=== PATIENT | female | born 1955 | race Caucasian/White ===

== ENCOUNTER 2018-07-11 15:44 | Emergency (ER) | payer OTHER ==
[~2018-07-11] VITALS: Ht 162.6 cm; Wt 65.3 kg
[2018-07-11] MEDS ORDERED: Ipratropium 0.02% Inh Soln 2.5ml UD HHN ONE (16:15)
[2018-07-11] MEDS ORDERED: Albuterol ud Inhalation HHN ONE (16:15)
[2018-07-11 16:30] VITALS: BP 100/64
--- NOTE | 2018-07-11 16:42 | Emergency Room Report ---
History of Present Illness General Chief Complaint: Dyspnea/Respdistress Source: Patient Present Illness HPI Patient presents with 1 month of cough. She sent here by her doctor to rule out pneumonia. She doesn't smoke. She has never used an inhaler. She does hear herself wheezing at times. She denies any chest pain. She did not receive a flu vaccination. She is taken antibiotics in the recent past. They have not seemed to improve the symptoms. The cough keeps her awake at night. She denies any productive phlegm. There is no family history of asthma. The patient denies any allergies. No fevers, chills, chest pain, palpitations, nausea, vomiting, diarrhea, dysuria , abdominal pain, shortness of breath, depression, visual changes, headache. History of hypertension. No change in medications recently. Allergies: Coded Allergies: No Known Allergies (Unverified , 07/11/18) Patient History Past Medical History: see triage record Social History: Denies: smoking Social History Narrative Now: No Reviewed Nursing Documentation: PMH: Agreed; PSxH: Agreed Nursing Documentation-PMH Past Medical History: No History, Except For Hx Hypertension: Yes Review of Systems All Other Systems: negative except mentioned in HPI Physical Exam Vital Signs Date Time Temp Pulse Resp B/P (MAP) Pulse Ox O2 Delivery O2 Flow Rate FiO2 07/11/18 15:55 99.1 109 23 145/87 95 Room Air 07/11/18 16:28 21 Sp02 EP Interpretation: reviewed, normal General Appearance: well appearing, no apparent distress, GCS 15 Head: normocephalic, atraumatic Eyes: bilateral eye normal inspection, bilateral eye PERRL ENT: moist mucus membranes Neck: supple Respiratory: wheezing, expiration - Posttussive and end expiration Cardiovascular #1: regular rate, rhythm, no edema Cardiovascular #2: 2+ radial (R) Gastrointestinal: normal inspection, normal bowel sounds, non tender, no mass, non-distended Genitourinary: no CVA tenderness Musculoskeletal: back normal, gait/station normal, normal range of motion, no calf tenderness, Luciano's Sign negative Neurologic: alert, oriented x3, grossly normal Psychiatric: mood/affect normal Skin: normal inspection, warm/dry Medical Decision Making Diagnostic Impression: Primary Impression: URI (upper respiratory infection) Qualified Codes: J06.9 - Acute upper respiratory infection, unspecified Additional Impressions: Bronchospasm Eosinophilia ER Course Patient presents with 1 month of cough. Differential includes allergy, acute myocardial infarction, pneumonia, bronchitis, bronchospasm, allergic reaction amongst others. Symptomatology is against whooping cough and tuberculosis. Also based on her physical exam and vital signs pulmonary embolus is unlikely. Evaluation will be with EKG, chest x-ray labs. The patient will be treated with breathing treatments. EKG without injury. Chest x-ray no infiltrates. Labs with normal white count however there is eosinophilia. CMP unremarkable. Troponin negative. Patient improved with breathing treatment. Because she had eosinophilia a dose of Solu-Medrol was given. A Citizen Of [place] veterinary medicine teacher treatment plan and diagnoses were discussed with the patient and her . Questions were answered. I reviewed use of an inhaler with him with the help of the veterinary medicine teacher and they felt comfortable with its use after the discussion. Patient stable for outpatient observation and treatment. Laboratory Tests Test 07/11/18 16:20 White Blood Count 6.8 K/UL (4.8-10.8) Red Blood Count 4.90 M/UL (4.20-5.40) Hemoglobin 15.7 G/DL (12.0-16.0) Hematocrit 47.7 % (37.0-47.0) H Mean Corpuscular Volume 97 FL (80-99) Mean Corpuscular Hemoglobin 32.1 PG (27.0-31.0) H Mean Corpuscular Hemoglobin Concent 33.0 G/DL (32.0-36.0) Red Cell Distribution Width 12.3 % (11.6-14.8) Platelet Count 224 K/UL (150-450) Mean Platelet Volume 6.8 FL (6.5-10.1) Neutrophils (%) (Auto) 55.5 % (45.0-75.0) Lymphocytes (%) (Auto) 24.7 % (20.0-45.0) Monocytes (%) (Auto) 12.1 % (1.0-10.0) H Eosinophils (%) (Auto) 6.4 % (0.0-3.0) H Basophils (%) (Auto) 1.4 % (0.0-2.0) Prothrombin Time 10.0 SEC (9.30-11.50) Prothrombin Time INR 0.9 (0.9-1.1) PTT 27 SEC (23-33) D-Dimer 0.28 mg/L FEU (0.00-0.49) Urine Color Yellow Urine Appearance Clear Urine pH 5 (4.5-8.0) Urine Specific [place] 1.030 (1.005-1.035) Urine Protein Negative (NEGATIVE) Urine Glucose (UA) Negative (NEGATIVE) Urine Ketones Negative (NEGATIVE) Urine Blood 1+ (NEGATIVE) H Urine Nitrite Negative (NEGATIVE) Urine Bilirubin Negative (NEGATIVE) Urine Urobilinogen Normal MG/DL (0.0-1.0) Urine Leukocyte Esterase Negative (NEGATIVE) Urine RBC 0-2 /HPF (0 - 2) Urine WBC 0 /HPF (0 - 2) Urine Squamous Epithelial Cells Few /LPF (NONE/OCC) Urine Bacteria Few /HPF (NONE) Sodium Level 140 MMOL/L (136-145) Potassium Level 3.9 MMOL/L (3.5-5.1) Chloride Level 106 MMOL/L (98-107) Carbon Dioxide Level 27 MMOL/L (21-32) Anion Gap 7 mmol/L (5-15) Blood Urea Nitrogen 14 mg/dL (7-18) Creatinine 1.1 MG/DL (0.55-1.30) Estimate Glomerular Filtration Rate 50.3 mL/min (>60) Glucose Level 150 MG/DL (74-106) H Lactic Acid Level 1.50 mmol/L (0.4-2.0) Calcium Level 10.8 MG/DL (8.5-10.1) H Total Bilirubin 0.8 MG/DL (0.2-1.0) Aspartate Amino Transferase (AST) 19 U/L (15-37) Alanine Aminotransferase (ALT) 26 U/L (12-78) Alkaline Phosphatase 99 U/L (46-116) Total Creatine Kinase 55 U/L (26-308) Troponin I 0.000 ng/mL (0.000-0.056) Pro-B-Type Natriuretic Peptide 56 pg/mL (0-125) Total Protein 7.7 G/DL (6.4-8.2) Albumin 3.8 G/DL (3.4-5.0) Globulin 3.9 g/dL Albumin/Globulin Ratio 1.0 (1.0-2.7) Microbiology Date/Time Source Procedure Growth Status 07/11/18 16:20 Nasal Nares Influenza Types A,B Antigen (TINO) - Final Complete EKG Diagnostic Results Rate: tachycardiac ST Segments: no acute changes Rhythm Strip Diag. Results EP Interpretation: yes Rhythm: no PVC's, no ectopy, other - ST Chest X-Ray Diagnostic Results Chest X-Ray Diagnostic Results : Chest X-Ray Ordered: Yes # of Views/Limited/Complete: 1 View Indication: Other EP Interpretation: Yes Interpretation: no consolidation, no effusion, no pneumothorax Impression: No acute disease Electronically Signed by: Electronically signed by Edd Tinsley MD Last Vital Signs Date Time Temp Pulse Resp B/P (MAP) Pulse Ox O2 Delivery O2 Flow Rate FiO2 07/11/18 19:12 23 134/89 95 Room Air 07/11/18 18:30 98.5 121 07/11/18 16:41 21 Status: improved Disposition: HOME, SELF-CARE Condition: Improved Scripts Prednisone* (PREDNISONE*) 20 Mg Tablet 40 MG ORAL DAILY, #10 TAB Prov: Edd Tinsley MD 07/11/18 Guaifenesin/Codeine Phos* (ROBITUSSIN AC*) 118 Ml Liquid 5 ML ORAL Q6H PRN for For Cough, #118 ML 0 Refills Prov: Edd Tinsley MD 07/11/18 Albuterol Sulfate* (ALBUTEROL SULFATE MDI*) 8.5 Gm Hfa.aer.ad 2 PUFF INH Q6H, #1 EA 0 Refills Prov: Edd Tinsley MD 07/11/18 Edd Tinsley MD Jul 11, 2018 16:42
[2018-07-11 16:46] LABS: BASOPHILS % (AUTO) 1.4 % (0.0-2.0); EOSINOPHILS % (AUTO) 6.4 % (0.0-3.0); HEMATOCRIT 47.7 % (37.0-47.0); HEMOGLOBIN 15.7 G/DL (12.0-16.0); LYMPHOCYTES % (AUTO) 24.7 % (20.0-45.0); MEAN CORPUSCULAR VOLUME 97 FL (80-99); MONOCYTES % (AUTO) 12.1 % (1.0-10.0); NEUTROPHILS % (AUTO) 55.5 % (45.0-75.0); PLATELET COUNT 224 K/UL (150-450); RED CELL DISTRIBUTION WIDTH 12.3 % (11.6-14.8); WHITE BLOOD COUNT 6.8 K/UL (4.8-10.8)
[2018-07-11 16:55] LABS: INR 0.9 (0.9-1.1)
[2018-07-11 17:04] LABS: APPEARANCE,URINE CLEAR; BILIRUBIN, URINE NEGATIVE (NEGATIVE); GLUCOSE, URINE (UA) NEGATIVE (NEGATIVE); KETONES,URINE NEGATIVE (NEGATIVE); LEUKOCYTE ESTERASE ,URINE NEGATIVE (NEGATIVE); NITRITE,URINE NEGATIVE (NEGATIVE); PH,URINE 5 (4.5-8.0); PROTEIN,URINE NEGATIVE (NEGATIVE); UROBILINOGEN,URINE NORMAL MG/DL (0.0-1.0)
[2018-07-11 17:09] LABS: COLOR,URINE YELLOW
[2018-07-11 17:23] LABS: ANION GAP 7 mmol/L (5-15); BLOOD UREA NITROGEN 14 mg/dL (7-18); CALCIUM 10.8 MG/DL (8.5-10.1); CARBON DIOXIDE 27 MMOL/L (21-32); CHLORIDE 106 MMOL/L (98-107); CREATININE 1.1 MG/DL (0.55-1.30); POTASSIUM 3.9 MMOL/L (3.5-5.1); SODIUM 140 MMOL/L (136-145)
[2018-07-11 17:30] VITALS: BP 137/66
[2018-07-11 17:33] LABS: ALANINE AMINOTRANSFERASE 26 U/L (12-78); ALBUMIN 3.8 G/DL (3.4-5.0); ALKALINE PHOSPHATASE 99 U/L (46-116); ASPARTATE AMINO TRANSFERASE 19 U/L (15-37); BILIRUBIN,TOTAL 0.8 MG/DL (0.2-1.0); CREATINE KINASE 55 U/L (26-308)
[2018-07-11] MEDS ORDERED: Solu-MEDROL 125mg Inj IVP ONE (18:00)
[2018-07-11 18:30] VITALS: BP 134/89
[2018-07-11] MEDS ORDERED: GUAIFENESIN-CO118 M1 ORAL (18:32)
[2018-07-11] MEDS ORDERED: PREDNISONE20 MG ORAL (18:32)
[2018-07-11] MEDS ORDERED: ALBUTEROL SULF8.5 GM INH (18:32)
[2018-07-11 19:12] VITALS: BP 134/89
--- NOTE | 2018-07-13 15:49 | Diagnostic Imaging Report ---
Indication: Dyspnea Comparison: None A single view chest radiograph was obtained. Findings: Cardiomediastinal appearance is within normal limits for age. The lungs are clear. Pulmonary vascularity is appropriate. The diaphragmatic contour is smooth and costophrenic angles are sharp. No pleural effusions are identified. The bones are unremarkable. Impression: No acute findings
== END 2018-07-11 19:18 | disposition home or self-care (01) ==
LOC: EMR 16:53
DX: J06.9 Acute upper respiratory infection, unspecified (principal); D72.1 Eosinophilia; J98.01 Acute bronchospasm; I10 Essential (primary) hypertension
CPT/HCPCS: 36415; 71045; 80053; 81003; 82550; 83605; 83880; 84484; 85025; 85379; 85610; 85730; 86710; 93005; 94640; 94664; 96374; 99284; J2930

== ENCOUNTER 2018-10-14 15:27 | Emergency (ER) | payer OTHER ==
[~2018-10-14] VITALS: Ht 162.6 cm; Wt 68.0 kg
[~2018-10-14 15:27] MED LIST: ALBUTEROL SULF8.5 GM INH; GUAIFENESIN-CO118 M1 ORAL; PREDNISONE20 MG ORAL
[2018-10-14] MEDS ORDERED: NKM (15:37)
[2018-10-14 16:02] VITALS: BP 128/76
[2018-10-14] MEDS ORDERED: Bacitracin Oint UD TOPIC ONE (16:30)
[2018-10-14] MEDS ORDERED: CEPHALEXIN500 MG ORAL (16:42)
[2018-10-14] MEDS ORDERED: MUPIROCIN22 GM TOPIC (16:42)
--- NOTE | 2018-10-14 16:42 | Emergency Room Report ---
History of Present Illness General Chief Complaint: Skin Rash/Abscess Source: Medical Record Present Illness HPI 63-year-old female presents to the emergency department complaining of 10 out of 10 in severity pain to the right pinky toe on the medial aspect progressive 3 days. Patient reports she has history of corns one of which was removed on the fourth right toe and she is now having symptoms on the right. Patient reports erythema and tenderness and some white appearance as well. Patient denies fevers, chills she states she is up-to-date with tetanus vaccination. Patient denies trauma or fall. Denies history of immunocompromise or diabetes. Allergies: Coded Allergies: No Known Allergies (Unverified , 07/11/18) Patient History Past Medical History: see triage record Past Surgical History: none Pertinent Family History: none Immunizations: UTD Reviewed Nursing Documentation: PMH: Agreed; PSxH: Agreed Nursing Documentation-PMH Past Medical History: No History, Except For Hx Hypertension: Yes Review of Systems All Other Systems: negative except mentioned in HPI Physical Exam Vital Signs Date Time Temp Pulse Resp B/P (MAP) Pulse Ox O2 Delivery O2 Flow Rate FiO2 10/14/18 15:36 98.4 90 18 138/84 95 Room Air Sp02 EP Interpretation: reviewed, normal General Appearance: no apparent distress, alert, GCS 15, non-toxic Head: normocephalic, atraumatic Eyes: bilateral eye normal inspection, bilateral eye PERRL ENT: hearing grossly normal, normal voice Neck: full range of motion Respiratory: lungs clear, normal breath sounds, speaking full sentences Cardiovascular #1: regular rate, rhythm, no edema, normal capillary refill Cardiovascular #2: 2+ dorsalis pedis (R), 2+ dorsalis pedis (L) Genitourinary: normal inspection Musculoskeletal: back normal, gait/station normal, normal range of motion, non- tender Neurologic: alert, oriented x3, responsive, motor strength/tone normal, sensory intact, speech normal, grossly normal Psychiatric: judgement/insight normal Skin: normal color, no rash, warm/dry, well hydrated, other - corn noted on the medial-interdigital space on the right 5th toe, erythema and a surrounding superficial purulence noted, no streaking, no obivous ST FB, pt. has similar lesion on the plantar aspect of the right 4th toe as well. Lymphatic: no adenopathy Medical Decision Making PA Attestation Dr. Mills is my supervising Physician whom patient management has been discussed with. Diagnostic Impression: Primary Impression: [place] infected Additional Impression: [place] of toe ER Course 63-year-old female presents to the emergency department complaining of 10 out of 10 in severity pain to the right pinky toe on the medial aspect progressive 3 days. Patient reports she has history of corns one of which was removed on the fourth right toe and she is now having symptoms on the right. Patient reports erythema and tenderness and some white appearance as well. Patient denies fevers, chills she states she is up-to-date with tetanus vaccination. Patient denies trauma or fall. Denies history of immunocompromise or diabetes. Ddx considered but are not limited to cellulitis, Plantar wart, Tophi, retained FB, dermatitis, , eczema, tinea, callous, viral exanthem just to name a few. Vital signs: are WNL, pt. is afebrile H&PE are most consistent with [place] on the medial aspect of the right 5th toe with secondary cellulitis / macerated/purulent appearance. ORDERS: none required at this time, the diagnosis is clinical ED INTERVENTIONS: -Wound care/cleaning -soft dressing applied to off load friction to the adjacent toe. DISCHARGE: At this time pt. is stable for d/c to home. Will provide printed patient care instructions, and any necessary prescriptions. Care plan and follow up instructions have been discussed with the patient prior to discharge. Last Vital Signs Date Time Temp Pulse Resp B/P (MAP) Pulse Ox O2 Delivery O2 Flow Rate FiO2 10/14/18 16:02 98.2 84 17 128/76 99 Room Air Status: improved Disposition: HOME, SELF-CARE Condition: Stable Scripts Mupirocin* (MUPIROCIN*) 22 Gm Oint...g. 1 APPLIC TOPIC THREE TIMES A DAY, #22 GM Prov: Ansley Markham 10/14/18 Cephalexin* (KEFLEX*) 500 Mg Capsule 500 MG ORAL EVERY 12 HOURS for 7 Days, #14 CAP 0 Refills Prov: Ansley Markham 10/14/18 Referrals: [facility],REFERRING (PCP) Patient Instructions: Corns and Calluses Additional Instructions: Take medications as directed. Follow up with a Primary Care Provider in 3-5 days for [facility] C[employer] REFERRAL, even if your symptoms have resolved. --Please review list of primary care clinics, if you do not already have a primary care provider Return sooner to ED if new symptoms occur, or current symptoms become worse. - Please note that this Emergency Department Report was dictated using [employer] technology software, occasionally this can lead to erroneous entry secondary to interpretation by the dictation equipment. Ansley Markham Oct 14, 2018 16:42
[2018-10-14 16:45] VITALS: BP 124/74
== END 2018-10-14 16:47 | disposition home or self-care (01) ==
LOC: EMR 16:25
DX: L84 Corns and callosities (principal); I10 Essential (primary) hypertension
CPT/HCPCS: 99282

== ENCOUNTER 2018-10-26 08:24 | Emergency (ER) | payer OTHER ==
[~2018-10-26] VITALS: Ht 160 cm; Wt 63.5 kg
[~2018-10-26 08:24] MED LIST changes: +CEPHALEXIN500 MG ORAL; +MUPIROCIN22 GM TOPIC; +NKM
[2018-10-26 08:44] VITALS: BP 125/78
--- NOTE | 2018-10-26 08:57 | Emergency Room Report ---
History of Present Illness General Chief Complaint: Flu Like Symptoms Source: Patient Present Illness HPI Patient presents with complaints of bilateral conjunctivitis discharge bilaterally she reports that this morning upon awaking there was increased discharge and she had to wash her eyes out experiencing blurry vision with the discharge Patient also reports that she is losing her voice also complains of increased cough and congestion Denies any chest pain denies any vomiting or diarrhea She has some questionable low-grade fever denies any posterior neck pain denies any photophobia denies any other rash Patient also complains of a sore throat Allergies: Coded Allergies: No Known Allergies (Unverified , 07/11/18) Patient History Past Medical History: see triage record Pertinent Family History: none Now: No Reviewed Nursing Documentation: PMH: Agreed; PSxH: Agreed Nursing Documentation-PMH Past Medical History: No History, Except For Hx Hypertension: Yes Review of Systems All Other Systems: negative except mentioned in HPI Physical Exam Vital Signs Date Time Temp Pulse Resp B/P (MAP) Pulse Ox O2 Delivery O2 Flow Rate FiO2 10/26/18 08:30 99.7 106 16 125/78 95 Room Air Sp02 EP Interpretation: reviewed, normal General Appearance: well appearing, no apparent distress Head: normocephalic, atraumatic Eyes: bilateral eye PERRL, bilateral eye EOMI, bilateral eye other - Bilateral conjunctivitis with yellowish discharge ENT: hearing grossly normal, TMs + canals normal, uvula midline, pharyngeal erythema Neck: full range of motion, supple, no meningismus, no bony tend Respiratory: lungs clear, normal breath sounds, no rhonchi, no respiratory distress, no retraction, no accessory muscle use Cardiovascular #1: normal peripheral pulses, regular rate, rhythm, no edema, no gallop, no JVD, no murmur Gastrointestinal: normal bowel sounds, non tender, soft, no mass, no organomegaly, non-distended, no guarding, no hernia, no pulsatile mass, no rebound Genitourinary: no CVA tenderness Musculoskeletal: normal inspection Neurologic: oriented x3, responsive, central supply aide III-XII nml as tested, motor strength/ tone normal, sensory intact Psychiatric: mood/affect normal Skin: normal color, no rash, warm/dry, palpation normal Lymphatic: normal inspection, no adenopathy Medical Decision Making Diagnostic Impression: Primary Impression: Laryngitis Additional Impression: Conjunctivitis ER Course Given the patient's history and presentation multiple differentials and consideration Given the increased cough chest x-ray was also obtained no obvious acute pathology is seen Patient has consistent findings with laryngitis Secondary bilateral conjunctivitis Patient was placed on medications appropriately and requires close outpatient follow-up Chest X-Ray Diagnostic Results Chest X-Ray Diagnostic Results : Chest X-Ray Ordered: Yes # of Views/Limited/Complete: 1 View Indication: Shortness of Breath EP Interpretation: Yes Interpretation: no consolidation, no effusion, no pneumothorax Impression: No acute disease Electronically Signed by: Grady Mcdaniel DO Last Vital Signs Date Time Temp Pulse Resp B/P (MAP) Pulse Ox O2 Delivery O2 Flow Rate FiO2 10/26/18 08:44 106 16 Room Air 10/26/18 08:44 99.7 125/78 95 Status: improved Disposition: HOME, SELF-CARE Condition: Improved Scripts Gentamicin Sulfate (Gentamicin Sulfate) 5 Ml Drops 1 DROP OP TID for 5 Days, ML Prov: Grady Mcdaniel DO 10/26/18 Additional Instructions: Patient is provided with the discharge instructions notified to follow up with primary doctor in the next 2-3 days otherwise return to the er with any worsening symptoms. Please note that this report is being documented using [employer] technology. This can lead to erroneous entry secondary to incorrect interpretation by the dictating instrument. Grady Mcdaniel DO Oct 26, 2018 08:57
[2018-10-26] MEDS ORDERED: GENTAMICIN SULF15 ML OP (09:47)
[2018-10-26 10:10] VITALS: BP 122/65
--- NOTE | 2018-10-28 14:53 | Diagnostic Imaging Report ---
Indication: Cough Technique: One view of the chest Comparison: 07/11/2018 Findings: Lungs and pleural spaces are clear. Heart size is normal . No significant interim change Impression: No acute process
== END 2018-10-26 10:10 | disposition home or self-care (01) ==
LOC: EMR 09:00
DX: J04.0 Acute laryngitis (principal); H10.9 Unspecified conjunctivitis; I10 Essential (primary) hypertension
CPT/HCPCS: 71045; 99283

== ENCOUNTER 2018-11-20 13:05 | Emergency (ER) | payer OTHER ==
[~2018-11-20] VITALS: Ht 162.6 cm; Wt 68.0 kg
[~2018-11-20 13:05] MED LIST changes: +GENTAMICIN SULF15 ML OP
[2018-11-20 13:17] VITALS: BP 137/83
[2018-11-20] MEDS ORDERED: SYNTHROID25 MCG ORAL (13:33)
[2018-11-20] MEDS ORDERED: BENAZEPRIL HCL10 MG ORAL (13:33)
[2018-11-20] MEDS ORDERED: GABAPENTIN100 MG ORAL (13:33)
[2018-11-20] MEDS ORDERED: TRAMADOL HCL50 MG ORAL (13:33)
[2018-11-20] MEDS ORDERED: SIMVASTATIN5 MG ORAL (13:33)
--- NOTE | 2018-11-20 14:20 | Emergency Room Report ---
History of Present Illness General Chief Complaint: Upper Respiratory Illness Source: Medical Record Present Illness HPI 63-year-old female presents to the emergency department complaining of dry persistent cough that is worse at night 2 months. Patient has been evaluated multiple times and given cough syrups and antibiotics with no relief of her symptoms. Patient denies pain, fevers, chills, body aches, and pain or swelling in the lower extremities.Denies CP, Palpitations, LOC, AMS, dizziness, Changes in Vision, Sensation, paresthesias, or a sudden severe headache. Denies hx of asthma, smoking or COPD. Allergies: Coded Allergies: No Known Allergies (Unverified , 07/11/18) Patient History Past Medical History: see triage record Past Surgical History: none Pertinent Family History: none Now: No Immunizations: UTD Reviewed Nursing Documentation: PMH: Agreed; PSxH: Agreed Nursing Documentation-PMH Past Medical History: No History, Except For Hx Hypertension: Yes Hx Diabetes: Yes - Borderline DM Review of Systems All Other Systems: negative except mentioned in HPI Physical Exam Vital Signs Date Time Temp Pulse Resp B/P (MAP) Pulse Ox O2 Delivery O2 Flow Rate FiO2 11/20/18 13:17 98.2 16 137/83 96 Room Air 11/20/18 13:17 72 Sp02 EP Interpretation: reviewed, normal General Appearance: well appearing, no apparent distress, alert, GCS 15, non- toxic Head: normocephalic, atraumatic Eyes: bilateral eye normal inspection, bilateral eye PERRL ENT: hearing grossly normal, normal voice Neck: full range of motion Respiratory: chest non-tender, lungs clear, normal breath sounds, speaking full sentences Cardiovascular #1: regular rate, rhythm Musculoskeletal: back normal, gait/station normal, normal range of motion, non- tender Neurologic: alert, oriented x3, responsive, motor strength/tone normal, sensory intact, speech normal, grossly normal Psychiatric: judgement/insight normal Skin: normal color, no rash, warm/dry, well hydrated Lymphatic: no adenopathy Medical Decision Making PA Attestation Dr. Arndt is my supervising physician whom pt. management has been discussed with. Diagnostic Impression: Primary Impression: Bronchitis Additional Impression: Mild acid reflux ER Course 63-year-old female presents to the emergency department complaining of dry persistent cough that is worse at night 2 months. Patient has been evaluated multiple times and given cough syrups and antibiotics with no relief of her symptoms. Patient denies pain, fevers, chills, body aches, and pain or swelling in the lower extremities.Denies CP, Palpitations, LOC, AMS, dizziness, Changes in Vision, Sensation, paresthesias, or a sudden severe headache. Denies hx of asthma, smoking or COPD. Ddx considered but are not limited to URI, pneumonia, PE, strep pharyngitis, meningitis. Vital signs: Pt.is afebrile VS are WNL H&PE are most consistent with bronchitis - secondary to unresolved acid reflux. ORDERS: none required at this time, the diagnosis is clinical ED INTERVENTIONS: None required at this time. DISCHARGE: At this time pt. is stable for d/c to home. Will provide printed patient care instructions, and any necessary prescriptions. Care plan and follow up instructions have been discussed with the patient prior to discharge. Last Vital Signs Date Time Temp Pulse Resp B/P (MAP) Pulse Ox O2 Delivery O2 Flow Rate FiO2 11/20/18 13:34 70 18 Room Air 11/20/18 13:17 98.2 96 11/20/18 13:17 137/83 Status: improved Disposition: HOME, SELF-CARE Condition: Stable Scripts Albuterol Sulfate* (ALBUTEROL SULFATE MDI*) 8.5 Gm Hfa.aer.ad 2 PUFF INH Q4H, #1 INH 0 Refills Prov: Ansley Markham 11/20/18 Codeine/Promethazine Hcl* (PROMETHAZINE-CODEINE SYRUP*) 118 Ml Syrup 5 ML ORAL Q6H PRN for For Cough, #120 ML 0 Refills Prov: Ansley Markham 11/20/18 Ranitidine Hcl* (ZANTAC*) 150 Mg Tablet 150 MG ORAL TWICE A DAY for 10 Days, #20 TAB Prov: Ansley Markham 11/20/18 Patient Instructions: Acute Bronchitis, [id number], Food Choices for Gastroesophageal Reflux Disease, Adult, [id number] Additional Instructions: Take medications as directed. Follow up with a Primary Care Provider in 3-5 days, even if your symptoms have resolved. --Please review list of primary care clinics, if you do not already have a primary care provider Return sooner to ED if new symptoms occur, or current symptoms become worse. - Please note that this Emergency Department Report was dictated using [employer] teacher assistant technology software, occasionally this can lead to erroneous entry secondary to interpretation by the dictation equipment. Ansley Markham November 20, 2018 14:20
[2018-11-20] MEDS ORDERED: ZANTAC150 MG ORAL (14:21)
[2018-11-20] MEDS ORDERED: ALBUTEROL SULF8.5 GM INH (14:21)
[2018-11-20] MEDS ORDERED: PROMETHAZINE-C118 M1 ORAL (14:21)
--- NOTE | 2018-11-20 14:31 | NUR ---
ER DISCHARGE NOTE: Patient is cleared to be discharged per ERMD, pt is aox4, on room air, with stable vital signs. pt was given dc and prescription instructions, pt was able to verbalize understanding, pt is able to ambulate with steady gait. pt took all belongings.
== END 2018-11-20 14:30 | disposition home or self-care (01) ==
LOC: EMR 14:00
DX: J20.9 Acute bronchitis, unspecified (principal); K21.9 Gastro-esophageal reflux disease without esophagitis; I10 Essential (primary) hypertension
CPT/HCPCS: 99282

== ENCOUNTER 2019-01-24 09:27 | Emergency (ER) | payer OTHER, MEDICARE ==
[~2019-01-24] VITALS: Ht 160 cm; Wt 65.3 kg
[~2019-01-24 09:27] MED LIST changes: +BENAZEPRIL HCL10 MG ORAL; +GABAPENTIN100 MG ORAL; +PROMETHAZINE-C118 M1 ORAL; +SIMVASTATIN5 MG ORAL; +SYNTHROID25 MCG ORAL; +TRAMADOL HCL50 MG ORAL; +ZANTAC150 MG ORAL
[2019-01-24 09:33] VITALS: BP 136/88
[2019-01-24] MEDS: Lidocaine 2% 20mg/ml/Epi 0.005mg/ml 20ml vial INJ ONE (10:02)
--- NOTE | 2019-01-24 10:14 | Emergency Room Report ---
History of Present Illness General Chief Complaint: Skin Rash/Abscess Source: Patient Present Illness HPI Patient presents with complaints of redness and swelling to the distal part of the left middle finger Pain is 5 out of 10 worse with touch she reports soaking it in water and placing ointment For the past 7 days with minimal relief and feels that there is some worsening Denies any fevers or chills denies any trauma patient did have a manicure about 1 month ago Allergies: Coded Allergies: No Known Allergies (Unverified , 07/11/18) Patient History Past Medical History: see triage record Pertinent Family History: none Now: No Reviewed Nursing Documentation: PMH: Agreed; PSxH: Agreed Nursing Documentation-PMH Past Medical History: No History, Except For Hx Hypertension: Yes Hx Diabetes: Yes - Borderline DM Review of Systems All Other Systems: negative except mentioned in HPI Physical Exam Vital Signs Date Time Temp Pulse Resp B/P (MAP) Pulse Ox O2 Delivery O2 Flow Rate FiO2 01/24/19 09:33 97.9 67 20 136/88 97 Room Air Sp02 EP Interpretation: reviewed, normal General Appearance: well appearing, no apparent distress Head: normocephalic, atraumatic ENT: hearing grossly normal, normal pharynx Neck: supple Respiratory: lungs clear, no respiratory distress, no retraction Cardiovascular #1: regular rate, rhythm Musculoskeletal: other - Erythema and fullness medial aspect of the distal left finger adjacent to the nail consistent with paronychia no obvious felon appreciated Neurologic: alert, oriented x3, responsive Skin: other - As above Lymphatic: no adenopathy Procedures Incision and Drainage Incision and Drainage : Consent: Verbal Site: Left middle finger Blade Size: 11 I & D Procedure: betadine prep, sterile drapes applied, sterile dressing applied, gauze wick placed Wound Location: upper extremity Anesthesia: 1% Lidocaine Volume Anesthetic (ccs): 2 Patient Tolerated: Well Complications: None Progress A digital block was performed by placing 2 cc of 1% lidocaine into the proximal aspect of the base of the middle finger this does provide appropriate sedation After this patient had incision applied with blade with removal of pus from the medial aspect. And improvement of the paronychia Medical Decision Making Diagnostic Impression: Primary Impression: Paronychia ER Course Patient's clinical exam and findings are consistent with paronychia Patient has incision performed given the lack of outpatient improvement patient tolerated the procedure well And is stable for close outpatient follow-up Last Vital Signs Date Time Temp Pulse Resp B/P (MAP) Pulse Ox O2 Delivery O2 Flow Rate FiO2 01/24/19 09:33 97.9 67 20 136/88 (104) 97 Room Air Status: improved Disposition: HOME, SELF-CARE Condition: Improved Scripts Cephalexin* (KEFLEX*) 500 Mg Capsule 500 MG ORAL EVERY 6 HOURS for 7 Days, CAP Prov: Grady Mcdaniel DO 01/24/19 Additional Instructions: Patient is provided with the discharge instructions notified to follow up with primary doctor in the next 2-3 days otherwise return to the er with any worsening symptoms. Please note that this report is being documented using [employer] technology. This can lead to erroneous entry secondary to incorrect interpretation by the dictating instrument. Grady Mcdaniel DO Jan 24, 2019 10:14
[2019-01-24] MEDS ORDERED: CEPHALEXIN500 MG ORAL (10:31)
[2019-01-24 10:39] VITALS: BP 136/88
== END 2019-01-24 10:39 | disposition home or self-care (01) ==
LOC: EMR 09:52
DX: L03.012 Cellulitis of left finger (principal); I10 Essential (primary) hypertension; E11.9 Type 2 diabetes mellitus without complications
CPT/HCPCS: 10060; 99282